=== PATIENT | female | born 1995 | race Caucasian/White ===

== ENCOUNTER 2017-09-13 17:55 | Emergency (ER) | payer MEDICAID ==
[~2017-09-13] VITALS: Ht 157.5 cm; Wt 55.2 kg
[~2017-09-13 17:55] MED LIST: DOCU-131 PO; IBUP-1222 PO; IBUP200C5; NITR100C56 PO; OXYC-302 PO; PREN1TAB56 PO
[2017-09-13] MEDS ORDERED: METHOCARBAMOL 750 MG TABLET ONE (18:45)
[2017-09-13] MEDS ORDERED: KETOROLAC 30 MG/1 ML ONE (18:46)
[2017-09-13 18:47] LABS: HCG UR LOT HCG7030192
[2017-09-13] MEDS ORDERED: KETOROLAC 30 MG/1 ML IM ONE (19:00)
[2017-09-13] MEDS ORDERED: METHOCARBAMOL 750 MG TABLET PO ONE (19:00)
[2017-09-13 19:08] LABS: HCG UR OBC PASS
[2017-09-13 19:10] LABS: HEMATOCRIT 42.9 % (34.6-47.8); HEMOGLOBIN 14.3 g/dL (11.7-16.4); WHITE BLOOD COUNT 5.9 x10^3/uL (3.4-10)
[2017-09-13 19:15] LABS: BLOOD UREA NITROGEN 14 mg/dL (7-18)
[2017-09-13 19:18] LABS: ASPARTATE AMINO TRANSFERASE 14 U/L (15-37)
[2017-09-13 20:06] VITALS: BP 123/69
== END 2017-09-13 20:09 | disposition home or self-care (01) ==
LOC: ED 19:43
DX: N30.01 Acute cystitis with hematuria (principal); M54.6 Pain in thoracic spine; M62.830 Muscle spasm of back
CPT/HCPCS: 36415; 80053; 81001; 81025; 83690; 85025; 87086; 96372; 99284; J1885